=== PATIENT | male | born 1995 | race African-American/Black ===

== ENCOUNTER 2016-08-20 15:42 | Emergency (ER) | payer MEDICAID ==
[~2016-08-20] VITALS: Ht 177.8 cm; Wt 80.0 kg
[2016-08-20 18:56] VITALS: BP 113/67
== END 2016-08-20 19:00 | disposition left against medical advice (07) ==
LOC: ER 16:16
DX: T65.91XA Toxic effect of unspecified substance, accidental (unintentional), initial encounter (principal); Z53.21 Procedure and treatment not carried out due to patient leaving prior to being seen by health care provider; X58.XXXA Exposure to other specified factors, initial encounter; Y93.89 Activity, other specified; Y99.8 Other external cause status; Y92.89 Other specified places as the place of occurrence of the external cause